=== PATIENT | female | born 1935 | race African-American/Black ===

== ENCOUNTER 2016-11-19 07:40 | Inpatient (IN) ==
[~2016-11-19 07:40] MED LIST: VANCOMYCIN INJ 1,000 MG in SODIUM CHLORIDE 0.9% 250 ML IV ONE
[2016-11-19] MEDS ORDERED: SODIUM CHLORIDE 0.9% 100 ML IV ONE (08:19)
[2016-11-19] MEDS ORDERED: VANCOMYCIN 1,000 MG VIAL ONE (08:19)
[2016-11-19] MEDS ORDERED: ceFAZolin 1,000 MG VIAL ONE (08:19)
[2016-11-19] MEDS: LACTATED RINGERS 1,000 ML IV SCH ×2 (08:40→13:00)
--- NOTE | 2016-11-19 09:59 | History and Physical Update ---
History and Physical Update - History and Physical H&P was reviewed, the patient examined and there: are no changes in the patients condition since last H&P was completed.
[2016-11-19] MEDS ORDERED: BACITRACIN OINT 0.9 GM PACK TOP ONE (10:29)
[2016-11-19] MEDS ORDERED: TRANEXAMIC ACID 1,000 MG/10 ML VIAL IV ONE (10:30)
[2016-11-19] MEDS ORDERED: ONDANSETRON 4 MG/2 ML VIAL ONE ×2 (11:45→14:44)
[2016-11-19] MEDS ORDERED: oxyCODONE IR 5 MG TABLET PO PRN ×2 (14:08)
[2016-11-19] MEDS ORDERED: MORPHINE 2 MG/1 ML SYRINGE IV PRN (14:08)
[2016-11-19] MEDS ORDERED: MAGNESIUM HYDROXIDE SUSP 30 ML UDCUP PO PRN (14:08)
[2016-11-19] MEDS ORDERED: ONDANSETRON 4 MG/2 ML VIAL IV PRN (14:08)
[2016-11-19] MEDS ORDERED: ZALEPLON 5 MG CAPSULE PO PRN (14:08)
[2016-11-19] MEDS ORDERED: DEXTROSE 50% 25 GM/50 ML SYRINGE IV PRN (14:11)
[2016-11-19] MEDS ORDERED: GLUCAGON 1 MG VIAL IM PRN (14:11)
--- NOTE | 2016-11-19 14:13 | Operative Note ---
Procedure: DIAGNOSIS: Aseptic loosening right tibia and femur PROCEDURE: Right total knee revision SURGEON: Isai ANESTHESIA: Spinal PROCEDURE and FINDINGS: After adequate anesthesia was induced, the right lower extremity was prepped and draped in usual sterile fashion. The limb was exsanguinated with Esmarch. Tourniquet was inflated 300 mmHg. Estimated tourniquet time was 90 minutes. The tourniquet was released during wound closure. Her previous midline incision was extended proximallly and distally. Median parapatellar approach was made. Pseudocapsule from her suprapatellar pouch and medial lateral gutters was excised. Components were exposed. The tibial and femoral components were easily removed and had delaminated from the cement. The cement mantle was well fixed and removed. The tibial component was addressed first. The tibia was reamed sequentially to 14 mm. The proximal reamer was used and then broached to 37 mm. The proximal tibia was sized to 2.5. The femur was then prepared by sequentially reaming to 14 mm. The metaphyseal reamer was used. The distal cut was made taking a +4 cut laterally in a +0 cut medially. The 4-in-1 cutting block was placed for a size 3 femur. The notch cut was made. Components were trialed. Stability was obtained with a 12.5 tibial insert. Components were cemented in place with Palacos G using modern cementing techniques. The wound was copiously irrigated. The patella was well fixed. Deep layers were closed with 0 Vicryl uubqek-[id number]-[id number] suture. Subcutaneous tissue was closed with 3-0 and 2-0 Vicryl interrupted buried suture. Oliver were used to close skin. A 1/8 inch Hemovac drain was placed deep prior to wound closure. The patient was transferred to recovery room after application of bacitracin and a sterile soft dressing. Estimated blood loss: Approximately 20 cc Components: [email or web address]T revision system. 75 x 14 mm universal fluted stem, a 2.5 mm rotating platform tibial tray, 37 mm metaphyseal sleeve, size 3 posterior stabilized cemented femur, an 115 by 14 universal stem, +4 distal augment laterally, 12.5 mm tibial insert Surgeon / Physician: Jensen Alex Jr. Discharge Plan - Discharge Medications No Action Nortriptyline [Pamelor] 50 mg PO BEDTIME Simvastatin 20 tablet PO BEDTIME Omeprazole 40 mg PO DAILY Levocetirizine Dihydrochloride [Xyzal] 5 mg PO DAILY Aspirin 325 mg PO DAILY Levothyroxine Tab [Synthroid Tab] 100 mcg PO DAILY Insulin NPH Human Isophane [NovoLIN N] See Protocol SUBCUT DIRECTED amLODIPine [Norvasc] 10 mg PO DAILY - Follow Up or Referral - Forms/Instructions
[2016-11-19] MEDS ORDERED: ROPIVACAINE 0.5% 30 ML VIAL ONE (14:19)
[2016-11-19] MEDS: INSULIN NPH 100 UNIT/ML SUBCUT SCH (14:30)
[2016-11-19] MEDS ORDERED: KETAMINE 500 MG/10 ML VIAL ONE (14:44)
[2016-11-19] MEDS ORDERED: MIDAZOLAM 2 MG/2 ML VIAL ONE (14:44)
--- NOTE | 2016-11-19 14:49 | XRay Report ---
Exam: XR knee 2V RT Date: 11/19/2016 2:10 PM Comparison: 05/16/2016 Indication: Right knee replacement revision Technique:[AP and lateral right knee] Findings: Interval revision of right total knee replacement with longer tibial and femoral components. Post operative findings are noted. Impression: Interval satisfactory revision of right total knee replacement. No acute fracture or dislocation. PROCEDURE INTERPRETED AT [facility] DEPARTMENT OF RADIOLOGY Final Report Signed by: Dr. Yessy Fields
--- NOTE | 2016-11-19 16:49 | Anesthesia Post-Op ---
Anesthesia Post OP - Post Ansesthetic Evaluation Patient seen in post op: Yes Resp: within normal limits CV: within normal limits Mental: within normal limits Temp: within normal limits [id number]-[id number]-[id number]: within normal limits Nausea and Vomiting: within normal limits Pain: within normal limits
[2016-11-19] MEDS: INSULIN LISPRO 100 UNIT/ML SUBCUT SCH ×2 (17:12→21:02)
[2016-11-19] MEDS: KETOROLAC 15 MG/1 ML VIAL IV SCH ×2 (17:13→22:31)
[2016-11-19] MEDS: ACETAMINOPHEN 500 MG TABLET PO SCH (19:06)
[2016-11-19] MEDS: SIMVASTATIN 20 MG TABLET PO SCH (21:03)
[2016-11-19] MEDS: DOCUSATE SODIUM 100 MG CAPSULE PO SCH (21:03)
[2016-11-19] MEDS: NORTRIPTYLINE 25 MG CAPSULE PO SCH (21:50)
[2016-11-19] MEDS ORDERED: VANCOMYCIN INJ 1,000 MG in SODIUM CHLORIDE 0.9% 250 ML IV ONE (22:09)
[2016-11-19] MEDS: MORPHINE 2 MG/1 ML SYRINGE IV PRN (22:35)
[2016-11-20] MEDS: ACETAMINOPHEN 500 MG TABLET PO SCH ×4 (00:41→12:51)
[2016-11-20] MEDS: LACTATED RINGERS 1,000 ML IV SCH ×3 (02:16→15:16)
[2016-11-20] MEDS: KETOROLAC 15 MG/1 ML VIAL IV SCH ×2 (03:12→09:46)
[2016-11-20 05:42] LABS: Basophils # 0.1 10*3/uL (0.0-0.2); Basophils % 0.6 % (0.0-0.8); Eosinophils # 0.2 10*3/uL (0.0-0.87); Eosinophils % 1.8 % (0.00-10.9); Hematocrit 30.4 VOL% (35.7-47.0); Hemoglobin 10.1 GM/DL (12.0-16.0); Immature Granulocytes % 0.3 %; Immature Granulocytes Absolute 0.03 #; Lymphocytes # 1.6 10*3/uL (1.4-4.0); Lymphocytes % 16.7 % (21.3-54.2); Mean Corpuscular HGB Conc 33.2 GM/DL (32-36); Mean Corpuscular Hemoglobin 33 PG (27-34); Mean Platelet Volume 12.3 FL (9.6-12.0); Monocytes # 1.1 10*3/uL (0.11-0.8); Monocytes % 11.7 % (1.7-12.7); Neutrophils # 6.7 10*3/uL (1.4-7.4); Neutrophils % 68.9 % (38.7-73.9); Platelet Count 201 T/CUMM (130-400); Red Blood Count 3.04 MC/CUMM (3.8-5.5); Red Cell Distribution Width 13.9 % (9.3-17.3); White Blood Count 9.7 T/CUMM (4-12)
[2016-11-20 06:10] LABS: Osmolality,Calculated 279.8 MOS/KG (273-304); Potassium 4.2 MMOL/L (3.5-5.1)
--- NOTE | 2016-11-20 08:43 | Pulmonology Progress Note ---
Pulmonary - PN: Subj Interval history: Patient is an 81-year-old black lady that has significant arthritis. Yesterday she came in and had a right total knee replacement. She has hypertension and diabetes and she felt like her glucose dropped this morning. She is eating okay now and seems to be stable. She is not having any shortness of breath or other problems. She says her right knee is feeling a little better. Otherwise she seems to be doing okay. She will start physical therapy today. Exam (Progress Note) - Constitutional Vitals: Period Temp Pulse Resp BP Sys/Quach Pulse Ox Last 24 Hr 97.5 F-98.7 F 71-99 16-20 101-166/60-86 91-99 General appearance: normal weight, no acute distress - Head Head exam: Present: normal inspection, normocephalic - Eye Eye exam: Present: EOMI. Absent: scleral icterus Pupils: Present: DARON - ENT ENT exam: Present: normal exam - Neck Neck exam: Present: normal inspection. Absent: lymphadenopathy, thyromegaly - Respiratory Respiratory exam: Present: clear to auscultation bilaterally - Cardiovascular Cardiovascular exam: Present: regular rate and rhythm. Absent: gallop, systolic murmur - GI/Abdominal GI/Abdominal exam: Present: normal bowel sounds, soft. Absent: organomegaly, tenderness - Extremities Exam Extremities exam: Present: other (Right knee is splinted.). Absent: calf tenderness, edema - Neurological Exam Neurological exam: Present: alert, oriented X3, CN II-XII intact - Psychiatric Psychiatric exam: Present: normal affect, normal mood - Skin Skin exam: Present: warm, dry Results - Labs CBC & BMP: 11/20/16 04:30 11/20/16 04:30 Assessment and Plan (1) Status post right knee replacement Status: Acute Assessment and plan: Patient came in yesterday and had a right knee replacement. She is doing fairly well at present. She will start physical therapy today. Current Visit: Yes (2) Diabetes Status: Acute Assessment and plan: She felt like her glucose was low this morning but this is not documented. She is awake and eating. Her glucose was 303 this morning. Current Visit: Yes (3) Hypertension Status: Acute Assessment and plan: Her heart rate and blood pressure are stable. Current Visit: Yes (4) Osteoarthritis of knee, unilateral Status: Acute Assessment and plan: Patient does have significant arthritis. Current Visit: No
[2016-11-20] MEDS: FONDAPARINUX 2.5 MG/0.5 ML SYRINGE SUBCUT SCH (09:00)
[2016-11-20] MEDS: PANTOPRAZOLE 40 MG TABLET PO SCH (09:01)
[2016-11-20] MEDS: amLODIPine 10 MG TABLET PO SCH (09:01)
[2016-11-20] MEDS: DOCUSATE SODIUM 100 MG CAPSULE PO SCH ×2 (09:01→21:07)
[2016-11-20] MEDS: LEVOTHYROXINE 100 MCG TABLET PO SCH (09:01)
[2016-11-20] MEDS: INSULIN LISPRO 100 UNIT/ML SUBCUT SCH ×4 (09:46→21:07)
[2016-11-20] MEDS: CETIRIZINE 10 MG TABLET PO SCH (09:46)
--- NOTE | 2016-11-20 11:21 | Orthopedic Progress Note ---
Orthopedics - Subjective Interval history: Comfortable. NV ok. Dressing dry. Able to perform a straight leg raise. Mobilize with therapy. Continue ancef while waiting for culture results. Exam - Constitutional Vitals: Period Temp Pulse Resp BP Sys/Quach Pulse Ox Last 24 Hr 97.5 F-98.7 F 71-99 16-20 101-166/60-86 91-99 Results - Labs CBC & BMP: 11/20/16 04:30 11/20/16 04:30
--- NOTE | 2016-11-20 11:29 | Pathology Report from [facility] ---
[facility] ACCESSION # : [id number] PATIENT NAME : Jaqui Reina V. ORDERING DR : BENJI WOODY MD CLINICAL HX: Painful total knee arthroplasty right POST-OP DX: Same SPECIMEN INFO: Right knee retained hardware, bone and tissue GROSS DESCRIPTION: The specimen is received in formalin labeled with the patients name and consists of knee replacement hardware along with multiple fragments of bone soft tissue and cartilage measuring 14.0 x 5.0 cm in aggregate. Test Facility Engineer sections submitted in one cassette. 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 COLLECTED DATE: 11/19/2016 [facility] REPORT DATE: 11/20/2016 ELECTRONICALLY SIGNED BY: Buddy Ortega M.D. 11/20/2016 - 9:33:45 [facility]
[2016-11-20] MEDS: INSULIN NPH 100 UNIT/ML SUBCUT SCH (15:17)
[2016-11-20] MEDS: MORPHINE 2 MG/1 ML SYRINGE IV PRN (19:38)
[2016-11-20] MEDS: CELECOXIB 200 MG CAPSULE PO SCH (21:06)
[2016-11-20] MEDS: SIMVASTATIN 20 MG TABLET PO SCH (21:07)
[2016-11-20] MEDS: NORTRIPTYLINE 25 MG CAPSULE PO SCH (21:07)
[2016-11-21 05:27] LABS: Basophils % 0.4 % (0.0-0.8); Eosinophils # 0.4 10*3/uL (0.0-0.87); Eosinophils % 3.9 % (0.00-10.9); Hematocrit 28.3 VOL% (35.7-47.0); Hemoglobin 9.5 GM/DL (12.0-16.0); Immature Granulocytes % 0.3 %; Immature Granulocytes Absolute 0.03 #; Lymphocytes # 1.5 10*3/uL (1.4-4.0); Lymphocytes % 16.3 % (21.3-54.2); Mean Corpuscular HGB Conc 33.6 GM/DL (32-36); Mean Corpuscular Hemoglobin 33 PG (27-34); Mean Corpuscular Volume 98.6 FL (87-102); Monocytes # 1.1 10*3/uL (0.11-0.8); Monocytes % 12.2 % (1.7-12.7); Neutrophils # 6.3 10*3/uL (1.4-7.4); Neutrophils % 66.9 % (38.7-73.9); Platelet Count 187 T/CUMM (130-400); Red Blood Count 2.87 MC/CUMM (3.8-5.5); Red Cell Distribution Width 13.8 % (9.3-17.3); White Blood Count 9.4 T/CUMM (4-12)
[2016-11-21] MEDS: LACTATED RINGERS 1,000 ML IV SCH (08:16)
[2016-11-21] MEDS: INSULIN LISPRO 100 UNIT/ML SUBCUT SCH ×4 (08:17→21:06)
[2016-11-21] MEDS: FONDAPARINUX 2.5 MG/0.5 ML SYRINGE SUBCUT SCH (08:17)
[2016-11-21] MEDS: amLODIPine 10 MG TABLET PO SCH (08:18)
[2016-11-21] MEDS: DOCUSATE SODIUM 100 MG CAPSULE PO SCH ×2 (08:18→21:00)
[2016-11-21] MEDS: LEVOTHYROXINE 100 MCG TABLET PO SCH (08:18)
[2016-11-21] MEDS: CELECOXIB 200 MG CAPSULE PO SCH (08:18)
[2016-11-21] MEDS: PANTOPRAZOLE 40 MG TABLET PO SCH (08:18)
[2016-11-21] MEDS: CETIRIZINE 10 MG TABLET PO SCH (08:18)
--- NOTE | 2016-11-21 09:24 | Orthopedic Progress Note ---
Orthopedics - Subjective Interval history: Ms. Carson is comfortable. She was able to walk in the [place] yesterday. She has noticed a difference in her knee. Dressing clean, dry and intact. Right lower extremities neurovascularly unchanged. Cultures at 48 hours are no growth. Continue with physical therapy. Plan discharge to swing bed tomorrow. Exam - Constitutional Vitals: Period Temp Pulse Resp BP Sys/Quach Pulse Ox Last 24 Hr 96.9 F-98.3 F 66-101 16-20 128-150/44-76 90-97 Results - Labs CBC & BMP: 11/21/16 04:39 11/20/16 04:30
--- NOTE | 2016-11-21 12:37 | Pulmonology Progress Note ---
Pulmonary - PN: Subj Interval history: Patient is an 81-year-old black lady that has significant arthritis. She came in and had a right total knee replacement. She has hypertension and diabetes. She did get up and move around some yesterday. She says her knee is feeling better but she is weak. She feels like her glucose is doing better. Her knee is better and she is starting physical therapy. Overall she has been reasonably stable. Exam (Progress Note) - Constitutional Vitals: Period Temp Pulse Resp BP Sys/Quach Pulse Ox Last 24 Hr 96.9 F-98.3 F 66-101 16-20 128-150/63-76 90-97 Exam: General appearance: normal weight, no acute distress, she is sitting up and looks comfortable. - Head Head exam: Present: normal inspection, normocephalic - Eye Eye exam: Present: EOMI. Absent: scleral icterus Pupils: Present: DARON - ENT ENT exam: Present: normal exam - Neck Neck exam: Present: normal inspection. Absent: lymphadenopathy, thyromegaly - Respiratory Respiratory exam: Present: clear to auscultation bilaterally, she has good breath sounds bilaterally. - Cardiovascular Cardiovascular exam: Present: regular rate and rhythm. Absent: gallop, systolic murmur - GI/Abdominal GI/Abdominal exam: Present: normal bowel sounds, soft. Absent: organomegaly, tenderness - Extremities Exam Extremities exam: Present: Her right knee looks good and she is moving her leg better. - Neurological Exam Neurological exam: Present: alert, oriented X3, CN II-XII intact - Psychiatric Psychiatric exam: Present: normal affect, normal mood - Skin Skin exam: Present: warm, dry Results - Labs CBC & BMP: 11/21/16 04:39 11/20/16 04:30 Assessment and Plan (1) Status post right knee replacement Status: Acute Assessment and plan: Patient came in and had a right knee replacement. She is doing better and starting to move around a little more. Current Visit: Yes (2) Diabetes Status: Acute Assessment and plan: She feels like her glucose is doing better and it is a little higher now. Her glucose is in the 200-300 range. Current Visit: Yes (3) Hypertension Status: Acute Assessment and plan: Her heart rate and blood pressure are stable. Current Visit: Yes (4) Osteoarthritis of knee, unilateral Status: Acute Assessment and plan: Patient does have significant arthritis. Current Visit: No
[2016-11-21] MEDS: INSULIN NPH 100 UNIT/ML SUBCUT SCH (14:36)
[2016-11-21] MEDS ORDERED: INSULIN NPH 100 UNIT/ML SUBCUT PRN (14:36)
[2016-11-21] MEDS: SIMVASTATIN 20 MG TABLET PO SCH (21:00)
[2016-11-21] MEDS: NORTRIPTYLINE 25 MG CAPSULE PO SCH (21:00)
[2016-11-22 05:42] LABS: Basophils % 0.4 % (0.0-0.8); Eosinophils # 0.3 10*3/uL (0.0-0.87); Eosinophils % 4.2 % (0.00-10.9); Hematocrit 27.5 VOL% (35.7-47.0); Hemoglobin 9.3 GM/DL (12.0-16.0); Immature Granulocytes % 0.2 %; Immature Granulocytes Absolute 0.02 #; Lymphocytes # 1.1 10*3/uL (1.4-4.0); Lymphocytes % 13.6 % (21.3-54.2); Mean Corpuscular HGB Conc 33.8 GM/DL (32-36); Mean Corpuscular Hemoglobin 34 PG (27-34); Mean Corpuscular Volume 99.3 FL (87-102); Mean Platelet Volume 12.2 FL (9.6-12.0); Monocytes % 12.1 % (1.7-12.7); Neutrophils # 5.6 10*3/uL (1.4-7.4); Neutrophils % 69.5 % (38.7-73.9); Platelet Count 160 T/CUMM (130-400); Red Blood Count 2.77 MC/CUMM (3.8-5.5); Red Cell Distribution Width 13.8 % (9.3-17.3); White Blood Count 8.1 T/CUMM (4-12)
--- NOTE | 2016-11-22 06:09 | Discharge Summary ---
Hospital Course - Hospital Course Hospital Course: Ms. Carson was admitted after undergoing an uncomplicated right total knee revision. She received perioperative DVT and antimicrobial prophylaxis. She received physical therapy. Her intraoperative cultures were negative. She was discharged to a swing bed in stable condition. Dr. Damian Hagen in pulmonology was consulted to help manage her medical problems perioperatively. Her dressing is clean, dry and intact. Right lower extremities neurovascularly unchanged. Discharge instructions were reviewed with the patient. Specialty Discharge - Follow Up or Referrals Follow up with: Jensen Alex Jr., MD [Physician] - Discharge Plan - Discharge Data Disposition: Disch/Xfer to Snf Discharge Diet: diabetic diet Hygiene: may shower Weight Bearing at Discharge: weight bear as tolerated Driving: not until seen by doctor - Discharge Medications New Fondaparinux [Arixtra] 2.5 mg SUBCUT Q24H 10 Days HYDROcodone/ACETAMIN 7.5-325 [Emerson 7.5-325] 2 tablet PO Q4H PRN tablet PRN Reason: Moderate Pain unrelieved by 1 HYDROcodone/ACETAMIN 7.5-325 [Emerson 7.5-325] 1 tablet PO Q4H PRN tablet PRN Reason: Pain Moderate (4-7) Insulin Lispro [HumaLOG] See Protocol SUBCUT ACHS unit Continue Nortriptyline [Pamelor] 50 mg PO BEDTIME Simvastatin 20 tablet PO BEDTIME Omeprazole 40 mg PO DAILY Levocetirizine Dihydrochloride [Xyzal] 5 mg PO DAILY Levothyroxine Tab [Synthroid Tab] 100 mcg PO DAILY Insulin NPH Human Isophane [NovoLIN N] 15 units SUBCUT BID W/MEALS PRN PRN Reason: Glucose Management amLODIPine [Norvasc] 10 mg PO DAILY Discontinued Aspirin 325 mg PO DAILY - Follow Up or Referral Follow Up: Jensen Alex Jr., MD [Physician] - - Forms/Instructions Additional Discharge Instructions: Daily dry dressing changes. Weightbearing as tolerated. CPM for 3 weeks. Arrange walker and bedside commode for home use. Wear POLO hose for 1 month. Discontinue zoey and Steri-Strip wound on December 02, 2016. Follow-up appointment in 4 weeks. Prescription for Emerson 7.5 was written. When Arixtra stopped, resume aspirin 325 mg by mouth daily.. Exam - Constitutional Vitals: Period Temp Pulse Resp BP Sys/Quach Pulse Ox Last 24 Hr 97.5 F-99.0 F 66-113 16-20 117-162/61-70 86-96 Discharge Results Labs on day of discharge: Labs from last 24 hours 11/22/16 11/21/16 11/21/16 04:06 20:33 15:36 WBC 8.1 RBC 2.77 L Hgb 9.3 L Hct 27.5 L MCV 99.3 MCH 34 MCHC 33.8 RDW 13.8 Plt Count 160 MPV 12.2 H Neut % (Auto) 69.5 Lymph % (Auto) 13.[address] [facility] % (Auto) 12.1 Eos % (Auto) 4.2 Baso % (Auto) 0.4 Neut # (Auto) 5.6 Lymph # (Auto) 1.[address] [facility] # (Auto) 1.0 H Eos # (Auto) 0.3 Baso # (Auto) 0.0 Immature Gran % 0.2 Nucleated RBC % 0.0 Immature Gran # 0.02 Nucleated RBCs # 0.00 Immature Plt Fraction 0.0 POC Glucose 328 H 291 H 11/21/16 11/21/16 10:53 07:04 WBC RBC Hgb Hct MCV MCH MCHC RDW Plt Count MPV Neut % (Auto) Lymph % (Auto) [facility] % (Auto) Eos % (Auto) Baso % (Auto) Neut # (Auto) Lymph # (Auto) [facility] # (Auto) Eos # (Auto) Baso # (Auto) Immature Gran % Nucleated RBC % Immature Gran # Nucleated RBCs # Immature Plt Fraction POC Glucose 316 H 209 H DS: Provider Date of admission: 11/19/16 14:08 Primary care physician: Jg Jade DO Attending physician on admission: Jensen Alex Jr., Consults: 11/19/16 14:08 Consult to Case Mgmt/Social Srvs [CONS] Routine Reason for Case Mgmt/Social Srvs: Rehab Home Health Equipment Consult Comment: Bedside Commode, CPM, Walker Consult to Occupational Therapy [CONS] Routine Reason for Occupational Therapy: Evaluate and Treat Consult Comment: ADL's Consult to Physical Therapy [CONS] Routine Reason for Physical Therapy: Evaluate and Treat Gait Training Start Therapy: Today Consult Comment: no cpm 11/19/16 15:34 Consult to Pastoral Services [CONS] Routine Comment: Pastoral Screen: Request Cage Loader Visit Pastoral Screen Source of Request: Patient 11/19/16 16:21 Consult to Physician [CONS] Routine Comment: Consulting Provider: Jonnie Hagen Consulting Provider Notified: Yes When should Consulting Provider be notified: Now Person Notified: Darell sorto Date Notified: 11/19/16 Discharging clinician: Jensen Alex Jr., Expected date of discharge: 11/22/16
[2016-11-22 07:33] VITALS: BP 153/78
[2016-11-22] MEDS: FONDAPARINUX 2.5 MG/0.5 ML SYRINGE SUBCUT SCH (08:15)
[2016-11-22] MEDS: INSULIN LISPRO 100 UNIT/ML SUBCUT SCH ×2 (08:15→10:56)
[2016-11-22] MEDS: PANTOPRAZOLE 40 MG TABLET PO SCH (08:16)
[2016-11-22] MEDS: amLODIPine 10 MG TABLET PO SCH (08:17)
[2016-11-22] MEDS: LEVOTHYROXINE 100 MCG TABLET PO SCH (08:17)
[2016-11-22] MEDS: DOCUSATE SODIUM 100 MG CAPSULE PO SCH (08:17)
[2016-11-22] MEDS: CETIRIZINE 10 MG TABLET PO SCH (08:17)
[2016-11-22] MEDS: CELECOXIB 200 MG CAPSULE PO SCH (08:17)
[2016-11-22] MEDS: LACTATED RINGERS 1,000 ML IV SCH (08:18)
--- NOTE | 2016-11-22 08:54 | Pulmonology Progress Note ---
Pulmonary - PN: Subj Interval history: Patient is an 81-year-old black lady that has significant arthritis. She came in and had a right total knee replacement. She has hypertension and diabetes. She has been moving around better and doing better with physical therapy. She says her knee is feeling better with less pain. She is walking a little better with assistance. She has not have any other problems. She is going to a swing bed today to continue physical therapy. Exam (Progress Note) - Constitutional Vitals: Period Temp Pulse Resp BP Sys/Quach Pulse Ox Last 24 Hr 97.5 F-99.0 F 68-113 16-20 117-162/61-78 86-96 Exam: General appearance: normal weight, no acute distress, she is sitting up and looks comfortable. She looks like she feels much better. - Head Head exam: Present: normal inspection, normocephalic - Eye Eye exam: Present: EOMI. Absent: scleral icterus Pupils: Present: DARON - ENT ENT exam: Present: normal exam - Neck Neck exam: Present: normal inspection. Absent: lymphadenopathy, thyromegaly - Respiratory Respiratory exam: Present: clear to auscultation bilaterally, she has good breath sounds bilaterally. - Cardiovascular Cardiovascular exam: Present: regular rate and rhythm. Absent: gallop, systolic murmur - GI/Abdominal GI/Abdominal exam: Present: normal bowel sounds, soft. Absent: organomegaly, tenderness - Extremities Exam Extremities exam: Present: Her right knee looks good and she is moving her leg better. She has no signs of phlebitis. - Neurological Exam Neurological exam: Present: alert, oriented X3, CN II-XII intact - Psychiatric Psychiatric exam: Present: normal affect, normal mood - Skin Skin exam: Present: warm, dry Results - Labs CBC & BMP: 11/22/16 04:06 11/20/16 04:30 Assessment and Plan (1) Status post right knee replacement Status: Acute Assessment and plan: Patient came in and had a right knee replacement. She is doing better and has been doing well with physical therapy. Her knee pain is better and she is ready to go to rehab. Current Visit: Yes (2) Diabetes Status: Acute Assessment and plan: She feels like her glucose is doing better and it is a little higher now. Her glucose is in the 200-300 range. Current Visit: Yes (3) Hypertension Status: Acute Assessment and plan: Her heart rate and blood pressure are stable. She is doing well medically. Current Visit: Yes (4) Osteoarthritis of knee, unilateral Status: Acute Assessment and plan: Patient does have significant arthritis. Current Visit: No Specialty Discharge - Follow Up or Referrals Follow up with: Jensen Alex Jr., MD [Physician] -
== END 2016-11-22 11:05 | disposition swing bed (61) | DRG 468 ==
LOC: N.OR 07:40 → N.SDSINP 07:41 → N.3E 15:27
PROVIDERS: ADMIT Orthopaedic Surgery; ATTEND Orthopaedic Surgery